=== PATIENT | female | born 1965 | race Two or more races ===

== ENCOUNTER 2022-07-18 06:00 | Day surgery (SDC) | payer OTHER ==
[~2022-07-18] VITALS: Ht 162.6 cm; Wt 82.6 kg
[~2022-07-18 06:00] MED LIST: NORVASC5 MG PO; SYNTHROID88 MCG PO
== END 2022-07-18 14:05 | disposition home or self-care (01) ==
LOC: CIR.AMB 06:00
PROVIDERS: ATTEND Surgery
DX: N60.82 Other benign mammary dysplasias of left breast (principal); D24.2 Benign neoplasm of left breast; I10 Essential (primary) hypertension; Z88.6 Allergy status to analgesic agent; Z88.8 Allergy status to other drugs, medicaments and biological substances; G43.909 Migraine, unspecified, not intractable, without status migrainosus
CPT/HCPCS: 19301; 19281; C1889